=== PATIENT | female | born 1975 ===

== ENCOUNTER 2024-12-25 06:00 | Day surgery (SDC) | payer OTHER ==
[2024-12-18 10:20] VITALS: BP 106/70
[2024-12-18 10:49] LABS: BASO % 1.1 % (0.1-1.2); EOS # 0.03 (0.04-0.54); EOS % 0.6 % (0.7-7.0); LYMPH # 1.31 (1.18-3.74); LYMPH % 27.6 % (19.3-53.1); MEAN PLATELET VOLUME 9.30 fl (9.4-12.4); MONO # 0.36 (0.24-0.82); MONO % 7.6 % (4.7-12.5); NEUT # 2.98 (1.56-6.13); NEUT % 62.9 % (34.0-71.1); RED CELL DISTRIBUTION WIDTH 11.9 % (11.6-14.4)
[2024-12-18 11:15] LABS: INR 1.01
[2024-12-18 11:30] LABS: ALT/SGPT 27.0 U/L (12-78); AST/SGOT 15.0 U/L (15-37); BILIRUBIN TOTAL 0.55 mg/dL (0.3-1.2); BUN CREA RATIO 18.0 (7.0-25.0); CREATININE SERUM 0.76 mg/dL (0.55-1.02); GFR 81.57; GLOBULINA 3.3 G/DL (2.4-3.5); GLUCOSE FASTING 87.0 mg/dL (65-100); OSMOLALITY SERUM 281.0 MOSM/KG (275-295)
[~2024-12-25] VITALS: Ht 157.5 cm; Wt 56.7 kg
== END 2024-12-25 12:10 | disposition home or self-care (01) ==
LOC: CIR.AMB 06:00
PROVIDERS: ATTEND Internal Medicine
DX: K76.89 Other specified diseases of liver (principal); R93.3 Abnormal findings on diagnostic imaging of other parts of digestive tract; R93.2 Abnormal findings on diagnostic imaging of liver and biliary tract